=== PATIENT | male | born 1950 | race Hispanic/Latino ===

== ENCOUNTER 2018-11-14 18:38 | Observation (INO) | payer OTHER ==
[~2018-11-14] VITALS: Ht 165.1 cm; Wt 94.8 kg
[2018-11-14 19:40] LABS: BASOPHILS % 0.4 % (0.0-1.0); EOSINOPHILS # (AUTO) 0.3 (0.0-0.4); EOSINOPHILS % 2.9 % (0.0-6.0); HEMATOCRIT 41.1 % (38.2-49.6); HEMOGLOBIN 14.3 g/dL (14.0-18.0); LYMPHOCYTES # (AUTO) 1.4 (1.0-3.2); LYMPHOCYTES % 14.1 % (18.0-39.1); MEAN CORPUSCULAR HEMOGLOBIN 31.8 pg (28-32); MEAN CORPUSCULAR HGB CONC 34.8 g/dL (31-35); MEAN CORPUSCULAR VOLUME 91.3 fL (81-99); MONOCYTES # (AUTO) 0.8 (0.2-0.8); MONOCYTES % 7.6 % (4.4-11.3); NEUTROPHILS # (AUTO) 7.5 (2.1-6.9); NEUTROPHILS % 74.3 % (38.7-80.0); PLATELET COUNT 234 x10e3/uL (140-360); RED CELL DISTRIBUTION WIDTH 12.2 % (11.7-14.4)
[2018-11-14 19:45] LABS: INR 0.96; PROTHROMBIN TIME 13.3 seconds (11.9-14.5)
--- NOTE | 2018-11-14 19:45 | Diagnostic Imaging Report ---
EXAMINATION: CHEST SINGLE (PORTABLE) INDICATION: Blurred vision. Dizziness. Chest pain when he lay down. COMPARISON: None FINDINGS: AP view TUBES and LINES: None. LUNGS: Lungs are well inflated. Lungs are clear. There is mild prominence of the central pulmonary vasculature, consistent with pulmonary venous congestion. PLEURA: No pleural effusion or pneumothorax. HEART AND MEDIASTINUM: The cardiomediastinal silhouette is unremarkable. BONES AND SOFT TISSUES: No acute osseous lesion. Soft tissues are unremarkable. UPPER ABDOMEN: No free air under the diaphragm. IMPRESSION: Mild nonspecific central pulmonary venous congestion. Signed by: Dr. Fidel Vega M.D. on 11/14/2018 7:41 PM
[2018-11-14 19:46] LABS: PARTIAL THROMBOPLASTIN TIME 32.2 seconds (23.8-35.5)
[2018-11-14 19:54] LABS: ALANINE AMINOTRANSFERASE 20 IU/L (0-55); ALBUMIN 3.6 g/dL (3.5-5.0); ALBUMIN/GLOBULIN RATIO 1.1 (0.8-2.0); ALKALINE PHOSPHATASE 89 IU/L (40-150); ANION GAP 16.6 mmol/L (8-16); BLOOD UREA NITROGEN 20 mg/dL (7-26); BUN/CREATININE RATIO 20 (6-25); CALCIUM 9.2 mg/dL (8.4-10.2); CARBON DIOXIDE 25 mmol/L (22-29); CHLORIDE 102 mmol/L (98-107); CREATINE KINASE 200 IU/L (30-200); CREATININE, SERUM 1.01 mg/dL (0.72-1.25); EST GLOMERULAR FILTRATION RATE > 60 ML/MIN (60-); GLUCOSE 138 mg/dL (74-118); SODIUM 141 mmol/L (136-145)
[2018-11-14 19:58] LABS: POTASSIUM 2.6 mmol/L (3.5-5.1)
[2018-11-14] MEDS ORDERED: POTASSIUM CHLORIDE 20 MEQ TAB CR PO STA (20:10)
[2018-11-14 20:40] LABS: BILIRUBIN,URINE NEGATIVE (NEGATIVE); CLARITY,URINE CLEAR (CLEAR); COLOR,URINE YELLOW (YELLOW); KETONES,URINE NEGATIVE (NEGATIVE); LEUKOCYTE ESTERASE ,URINE NEGATIVE (NEGATIVE); NITRITE,URINE NEGATIVE (NEGATIVE); PROTEIN,URINE DIPSTICK NEGATIVE (NEGATIVE); URINE UROBILINOGEN 0.2 mg/dL (0.2 - 1)
[2018-11-14 20:40] LABS: MAGNESIUM 2.1 MG/DL (1.3-2.1)
[2018-11-14] MEDS: POTASSIUM CHLORIDE 10MEQ/100ML 100 ML IV SCH ×2 (21:02→23:13)
[2018-11-14 21:06] LABS: THYROID STIMULATING HORMONE 0.959 uIU/mL (0.350-4.940)
[2018-11-14 21:08] LABS: BACTERIA,URINE RARE /HPF; RBC,URINE 0-5 /HPF (0-5); WBC,URINE (MAN) 0-5 /HPF (0-5)
--- NOTE | 2018-11-14 22:08 | Diagnostic Imaging Report ---
History: Dizziness, double vison, syncope Comparison studies: None Technique: Axial images were obtained from the skull base to the vertex. Coronal and sagittal reconstructions obtained from the axial data. Dose modulation, iterative reconstruction, and/or weight based adjustment of the mA/kV was utilized to reduce the radiation dose to as low as reasonably achievable. Findings: Scalp/skull: No abnormalities. No fractures, blastic or lytic lesions. Extra-axial spaces: No masses. No fluid collections. Brain sulci: Appropriate for age. Ventricles: Normal in size and configuration. No hydrocephalus. Parenchyma: Few hypodensities in the supratentorial white matter are small vessel ischemic changes. No masses, hemorrhage, acute or chronic cortical vascular insults. Sellar/suprasellar region: Empty sella configuration. Craniocervical junction: Patent foramen magnum. No Chiari one malformation. IMPRESSION: No acute abnormalities . Signed by: DR Donovan Leal M.D. on 11/14/2018 10:04 PM
[2018-11-14] MEDS ORDERED: KCL 20MEQ/.9 SOD CHL 1,000 ML IV ONE (22:30)
[2018-11-14] MEDS ORDERED: ASPIRIN 81 MG CHEW TAB PO ONE (22:30)
[2018-11-14] MEDS ORDERED: ONDANSETRON HCL INJ 2MG/ML 2ML 2 MG/ML VIAL IV PRN (22:30)
--- OUTSIDE RECORDS SUMMARY | 2018-11-14 22:45 | XMS REPORT ---
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 Allergies, Adverse Reactions, Alerts This patient has no known allergies or adverse reactions. Medications This patient has no known medications. Results Test Description Test Time Test Comments Text Results Atomic Results Result Comments CT BRAIN WO 2018-11-14 22:00:00 [place] [address] Patient Name: SHERRI RICHEY MR #: [id number] : 1950 Age/Sex: 68/M Req #: [id number] Adm Physician: Ordered by: BREA SOLO MD Report #: [id number] Location: ER Room/Bed: Procedure: [id number] CT/CT BRAIN WO Exam Date: Exam Time: REPORT STATUS: Signed History: Dizziness, double vison, syncope Comparison studies: None Tech nique: Axial images were obtained from the skull base to the vertex. Coronal and sagittal reconstructions obtained from the axial data. Dose modulation, iterative reconstruction, and/or weight based adjustment of the mA/kV was utilized to reduce the radiation dose to as low as reasonably achievable. Findings: Scalp/skull: No abnormalities. No fractures, blastic or lytic lesions. Extra-axial spaces: No masses. No fluid collections. Brain sulci: Appropriate for age. Ventricles: Normal in size and configuration. No hydrocephalus. Parenchyma: Few hypodensities in the supratentorial white matter are small vessel ischemic changes. No masses, hemorrhage, acute or chronic cortical vascular insults. Sellar/suprasellar region: Empty sella configuration. Craniocervical junction: Patent foramen magnum. No Chiari one malformation. IMPRESSION: No acute abnormalities . Signed by: DR Donovan Leal M.D. on 11/14/2018 10:04 PM Dictated By: DONOVAN ESPARZA MD 03 Transcribed By: MALIA on 11/14/182203 COPY TO: BREA SOLO MD CHEST SINGLE (PORTABLE) 2018-11-14 19:40:00 [place] [address] Patient Name: SHERRI RICHEY MR #: [id number] : 1950 Age/Sex: 68/M Req #: [id number] Adm Physician: Ordered by: HARSH BRYAN CHIN STRAP CUTTER Report #: [id number] Location: ER Room/Bed: Procedure: [id number] DX/CHEST SINGLE (PORTABLE) Exam Date: 11/14/18 Exam Time: 1908 REPORT STATUS: Signed EXAMINATION: CHEST SINGLE (PORTABLE) INDICAT ION: Blurred vision. Dizziness. Chest pain when he lay down. COMPARISON: None FINDINGS: AP view TUBES and LINES: None. LUNGS: Lungs are well inflated. Lungs are clear. There is mild prominence of the central pulmonary vasculature, consistent with pulmonary venous congestion. PLEURA: No pleural effusion or pneumothorax. HEART AND MEDIASTINUM: The cardiomediastinal silhouette is unremarkable. BONES AND SOFT TISSUES: No acute osseous lesion. Soft tissues are unremarkable. UPPER ABDOMEN: No free air under the diaphragm. IMPRESSION: Mild nonspecific central pulmonary venous congestion. Signed by: Dr. Farrah Melendez M.D. on 11/14/2018 7:41 PM Dictated By: FARRAH MELENDEZ MD 40 Transcribed By: MALIA on 11/14/181940 COPY TO: HARSH BRYAN NP
--- NOTE | 2018-11-14 23:17 | NUR ---
TOTAL OF 20MEQ IV POTASSIUM GIVEN
[2018-11-14] MEDS ORDERED: AMLODIPINE BESY10 MG PO (23:25)
[2018-11-14] MEDS ORDERED: VITAMIN D250000 UNIT PO (23:25)
[2018-11-14] MEDS ORDERED: KLOR-CON M2020 MEQ PO (23:25)
[2018-11-14] MEDS ORDERED: LISINOPRIL-HCT1 EAC1 PO (23:25)
[2018-11-14] MEDS ORDERED: ATORVASTATIN CA20 MG PO (23:25)
[2018-11-14] MEDS ORDERED: FLOMAX0.4 MG PO (23:25)
[2018-11-14] MEDS ORDERED: HYDRALAZINE HCL 20 MG/ML VIAL IV STA (23:34)
[2018-11-14] MEDS ORDERED: HYDRALAZINE HCL 20 MG/ML VIAL ONE (23:39)
[2018-11-14] MEDS ORDERED: HYDRALAZINE HCL 20 MG/ML VIAL IV PRN (23:45)
[2018-11-15 06:03] LABS: BASOPHILS % 0.4 % (0.0-1.0); EOSINOPHILS # (AUTO) 0.3 (0.0-0.4); EOSINOPHILS % 3.1 % (0.0-6.0); HEMATOCRIT 38.8 % (38.2-49.6); HEMOGLOBIN 13.4 g/dL (14.0-18.0); LYMPHOCYTES # (AUTO) 1.8 (1.0-3.2); LYMPHOCYTES % 18.7 % (18.0-39.1); MEAN CORPUSCULAR HEMOGLOBIN 31.4 pg (28-32); MEAN CORPUSCULAR HGB CONC 34.5 g/dL (31-35); MEAN CORPUSCULAR VOLUME 90.9 fL (81-99); MONOCYTES # (AUTO) 0.8 (0.2-0.8); MONOCYTES % 8.7 % (4.4-11.3); NEUTROPHILS # (AUTO) 6.6 (2.1-6.9); NEUTROPHILS % 68.5 % (38.7-80.0); PLATELET COUNT 225 x10e3/uL (140-360); RED BLOOD COUNT 4.27 x10e6/uL (4.3-5.7); RED CELL DISTRIBUTION WIDTH 12.3 % (11.7-14.4)
[2018-11-15 06:24] LABS: CREATINE KINASE MB 1.6 ng/mL (0-5.0)
[2018-11-15 06:39] LABS: ALANINE AMINOTRANSFERASE 19 IU/L (0-55); ALBUMIN 3.2 g/dL (3.5-5.0); ALBUMIN/GLOBULIN RATIO 1.1 (0.8-2.0); ALKALINE PHOSPHATASE 76 IU/L (40-150); BLOOD UREA NITROGEN 14 mg/dL (7-26); BUN/CREATININE RATIO 18 (6-25); CALCIUM 8.5 mg/dL (8.4-10.2); CARBON DIOXIDE 24 mmol/L (22-29); CHLORIDE 106 mmol/L (98-107); CHOL/HDL RATIO 2.6 (3.9-4.7); CHOLESTEROL 88 MD/DL (0-199); CREATININE, SERUM 0.78 mg/dL (0.72-1.25); EST GLOMERULAR FILTRATION RATE > 60 ML/MIN (60-); GLUCOSE 103 mg/dL (74-118); HDL CHOLESTEROL 34 MG/DL (40-60); LDL CHOLESTEROL 36 MG/DL (60-130); SODIUM 137 mmol/L (136-145); TRIGLYCERIDES 89 MG/DL (0-149)
[2018-11-15 08:00] VITALS: BP 162/95
--- NOTE | 2018-11-15 08:00 | NUR ---
pt resting in bed, no c/o pain or s/s of distress. bedrest at this time. jeromy hodges labs. will continue to monitor.
[2018-11-15] MEDS ORDERED: POTASSIUM CHLORIDE 20 MEQ TAB CR PO ONE ×2 (08:30→12:15)
[2018-11-15] MEDS: ASPIRIN 81 MG ENTERIC COATED PO SCH (08:37)
[2018-11-15 10:02] VITALS: BP 162/95
--- NOTE | 2018-11-15 12:20 | Diagnostic Imaging Report ---
TECHNIQUE: CT of the chest, abdomen and pelvis without intravenous contrast. History: Pain, dizziness, hypokalemia, near syncope. COMPARISON: Chest radiograph 11/14/2018. TECHNIQUE: Chest, abdomen and pelvis were scanned utilizing a multidetector helical scanner from the thoracic inlet to the pubic symphysis without administration of IV or oral contrast. Coronal and sagittal reformations were obtained. Routine protocol was performed. Lack of intravenous contrast limits evaluation for vascular and visceral structures. RADIATION DOSE: Total DLP: 984.6 mGy*cm Dose modulation, iterative reconstruction, and/or weight based adjustment of the mA/kV was utilized to reduce the radiation dose to as low as reasonably achievable. FINDINGS: LINES AND TUBES: None LUNGS AND AIRWAYS: The central airways are patent. Multiple calcified granulomas, for example in the right lower lobe on series 4, image 60. No evidence of pneumonia or pulmonary edema. PLEURA: The pleural spaces are clear. HEART AND MEDIASTINUM: Limited evaluation of the thyroid gland without definite abnormality. No significant mediastinal, hilar or axillary lymphadenopathy is seen. No cardiomegaly or pericardial effusion. Coronary atherosclerosis (most pronounced in the LAD and left circumflex). HEPATOBILIARY: No focal hepatic lesions. No biliary ductal dilatation. SPLEEN: No splenomegaly. PANCREAS: No focal masses or ductal dilatation. ADRENALS: No adrenal nodules. KIDNEYS/URETERS: No hydronephrosis or solid mass lesions. There is a 6 mm nonobstructing right midpole renal stone. PELVIC ORGANS/BLADDER: The prostate is enlarged, measuring up to 5.4 x 4.4 x 4.4 cm (TV x AP x SI). PERITONEUM / RETROPERITONEUM: No free air or fluid. LYMPH NODES: No lymphadenopathy. VESSELS: Atherosclerotic calcifications within the left common and external iliac arteries. GI TRACT: No distention or wall thickening. Small hiatal hernia. Sigmoid colonic diverticulosis without CT evidence of diverticulitis. BONES AND SOFT TISSUES: No acute osseous abnormality. Nonspecific tiny scattered sclerotic foci in the pelvis. There is a T11 vertebral body hemangioma. Fat-containing umbilical and bilateral inguinal hernias. IMPRESSION: No acute non-contrast CT abnormality within the chest, abdomen, or pelvis. Coronary atherosclerosis. A 6 mm right mid pole non-obstructing renal stone. Prostatomegaly. Sequela of prior granulomatous disease Signed by: Dr. Shanel Vee MD on 11/15/2018 12:17 PM
[2018-11-15 12:35] VITALS: BP 132/95
[2018-11-15 14:54] LABS: CREATINE KINASE MB 1.9 ng/mL (0-5.0)
[2018-11-15] MEDS ORDERED: IOPAMIDOL 370 MG/ML 200 ML INFUS..BTL INJ ONE (15:54)
[2018-11-15] MEDS ORDERED: SODIUM CHLORIDE 0.9% 50ML 50 ML ONE (15:54)
[2018-11-15 16:13] VITALS: BP 153/87
--- NOTE | 2018-11-15 17:13 | History and Physical ---
CHIEF COMPLAINT: Low potassium, near syncope, and visual changes. HISTORY OF PRESENT ILLNESS: The patient is a 68-year-old male with chest pain approximately two weeks ago, came to see primary care physician, . came in with headaches and complained of increasing blood pressure associated with chest pain and also low potassium. The patient's potassium level on admission was 2.6. The patient has medication at home. He was taking potassium and also Norvasc for blood pressure as well. He was on lisinopril and HCTZ. The patient is otherwise stable now, except for some visual changes. MRI of the brain is still pending. The patient is otherwise stable at this time. PAST MEDICAL HISTORY: Hypertension, dyslipidemia, enlarged prostate, morbid obesity, and umbilical hernia. PAST SURGICAL HISTORY: Left hand CTS surgery and bilateral jaw surgery. SOCIAL HISTORY: The patient was an ex-smoker and drinker. No current alcohol or tobacco usage. HOME MEDICATIONS: 1. Norvasc. 2. Lipitor. 3. Lisinopril. 4. HCTZ. 5. Potassium. 6. Flomax. ALLERGIES: NO KNOWN DRUG ALLERGIES. PHYSICAL EXAMINATION: VITAL SIGNS: Temperature is 98, blood pressure 125/84, pulse rate 52, and respirations 18. GENERAL: The patient is not in acute distress, awake. HEENT: Normocephalic, anicteric. NECK: Supple grossly. PULMONARY: Diminished breath sounds. CARDIOVASCULAR: Regular rate and rhythm, bradycardia. ABDOMEN: Morbidly obese, umbilical hernia reducible. EXTREMITIES: Trace edema with chronic venous skin changes. NEUROLOGIC: No focal deficit. LABORATORY DATA: Sodium is 137, potassium 3, chloride 106, bicarb 24, BUN 14, creatinine 0.7, and glucose 103. WBC is 9.7, hemoglobin 13.4, hematocrit 38.9, and platelets is 225. IMAGING: Brain CT is otherwise unremarkable. No acute abnormality. Chest x-ray, nonspecific central pulmonary vascular congestion. IMPRESSION: 1. Visual changes, diplopia. 2. Severe low potassium, most probably from medication. 3. Morbidly obese. 4. Chest pain. 5. Electrolyte disorder. PLAN: Correct electrolyte. Consultation with Dr. Eavn Hannon. Echocardiogram, carotid Doppler, and MRI of the brain. DVT prophylaxis . We will replace potassium. We will follow up on recommendation. Follow up with MRI of the brain. MD LALITHA Valles/KELLY /[id number]
[2018-11-15] MEDS: ENOXAPARIN SOD INJ 40 MG/0.4 ML SYR SC SCH (17:44)
[2018-11-15 20:00] VITALS: BP 161/98
--- NOTE | 2018-11-15 20:00 | NUR ---
PT IN BED, TELE ON PT, NO DISTRESS NOTED, NO PAIN, BM TODAY, NO EDEMA, CALL LIGHT IN REACH,
[2018-11-15 20:07] VITALS: BP 153/87
[2018-11-16] VITALS: BP 126/75
[2018-11-16 04:00] VITALS: BP 142/81
[2018-11-16 05:37] LABS: BASOPHILS % 0.2 % (0.0-1.0); EOSINOPHILS # (AUTO) 0.4 (0.0-0.4); EOSINOPHILS % 3.4 % (0.0-6.0); HEMATOCRIT 39.3 % (38.2-49.6); HEMOGLOBIN 13.6 g/dL (14.0-18.0); LYMPHOCYTES # (AUTO) 1.7 (1.0-3.2); LYMPHOCYTES % 16.8 % (18.0-39.1); MEAN CORPUSCULAR HEMOGLOBIN 31.6 pg (28-32); MEAN CORPUSCULAR HGB CONC 34.6 g/dL (31-35); MEAN CORPUSCULAR VOLUME 91.2 fL (81-99); MONOCYTES % 9.6 % (4.4-11.3); NEUTROPHILS # (AUTO) 7.1 (2.1-6.9); NEUTROPHILS % 69.4 % (38.7-80.0); PLATELET COUNT 232 x10e3/uL (140-360); RED BLOOD COUNT 4.31 x10e6/uL (4.3-5.7); RED CELL DISTRIBUTION WIDTH 12.3 % (11.7-14.4)
[2018-11-16 05:57] LABS: ALANINE AMINOTRANSFERASE 21 IU/L (0-55); ALBUMIN 3.2 g/dL (3.5-5.0); ALKALINE PHOSPHATASE 73 IU/L (40-150); ANION GAP 11.9 mmol/L (8-16); BLOOD UREA NITROGEN 12 mg/dL (7-26); BUN/CREATININE RATIO 14 (6-25); CALCIUM 8.8 mg/dL (8.4-10.2); CARBON DIOXIDE 23 mmol/L (22-29); CHLORIDE 106 mmol/L (98-107); CHOL/HDL RATIO 2.6 (3.9-4.7); CHOLESTEROL 91 MD/DL (0-199); CREATININE, SERUM 0.85 mg/dL (0.72-1.25); EST GLOMERULAR FILTRATION RATE > 60 ML/MIN (60-); GLUCOSE 97 mg/dL (74-118); HDL CHOLESTEROL 35 MG/DL (40-60); LDL CHOLESTEROL 33 MG/DL (60-130); PHOSPHORUS 2.7 MG/DL (2.3-4.7); SODIUM 138 mmol/L (136-145); TRIGLYCERIDES 115 MG/DL (0-149)
[2018-11-16 05:59] LABS: POTASSIUM 2.9 mmol/L (3.5-5.1)
[2018-11-16 06:19] LABS: THYROID STIMULATING HORMONE 2.251 uIU/mL (0.350-4.940)
--- NOTE | 2018-11-16 06:50 | NUR ---
rounded with fast food shift lead nurse, patient resting comfortably and in no distress. call andrews within reach and bed in lowest position
[2018-11-16 07:55] VITALS: BP 142/86
[2018-11-16 08:00] VITALS: BP 142/86
[2018-11-16] MEDS ORDERED: POTASSIUM CHLORIDE 20 MEQ TAB CR PO STA (08:07)
[2018-11-16] MEDS: ASPIRIN 81 MG ENTERIC COATED PO SCH (08:35)
[2018-11-16] MEDS ORDERED: POTASSIUM CHLORIDE 20 MEQ TAB CR PO SCH ×2 (09:00→16:00)
[2018-11-16] MEDS ORDERED: ONDANSETRON HCL 4 MG ORAL DISINTEGRATING TAB PO PRN (09:15)
[2018-11-16] MEDS: LISINOPRIL 20 MG TAB PO SCH ×2 (09:26→16:15)
[2018-11-16 09:29] LABS: MAGNESIUM 1.9 MG/DL (1.3-2.1); PHOSPHORUS 2.7 MG/DL (2.3-4.7)
--- NOTE | 2018-11-16 10:23 | Diagnostic Imaging Report ---
Images made available for interpretation on 11/16/2018 at 10:15 AM. EXAMINATION: MRI of the brain without contrast. HISTORY: TIA, double vision, dizziness, imbalance COMPARISON: Head CT 11/14/2018 TECHNIQUE: Sagittal T2; axial DWI, T2, FLAIR, T1-IR, T2 gradient echo; coronal FLAIR. IMAGE QUALITY: Motion artifact limits the evaluation of some of the sequences. FINDINGS: Parenchyma: 1. A few scattered white matter T2 and FLAIR hyperintense foci, most likely age-related minimal chronic microvascular ischemic changes. 2. No mass, hemorrhage, acute or chronic infarcts. Skull: Unremarkable. Vessels: Expected flow voids present in the major arteries and dural sinuses. Extra-axial spaces: No abnormal signal intensity or mass effect. Brain volume: Within normal limits for age. Ventricles: No hydrocephalus or displacement. Foramen magnum: Unremarkable. Sella: Enlarged, partially empty, mostly CSF filled. Paranasal / mastoid sinuses: No significant inflammatory disease. IMPRESSION: No acute infarcts. Minimal age-related chronic microvascular ischemic changes. Signed by: Dr. Christiana Lea M.D. on 11/16/2018 10:20 AM
[2018-11-16 11:18] VITALS: BP 125/78
--- NOTE | 2018-11-16 13:48 | Consultation ---
DATE OF CONSULTATION: 11/15/2018 REASON FOR CONSULTATION: Chest pain. CONSULTING PHYSICIAN: Dr. Edgard France. HISTORY OF PRESENT ILLNESS: This is a pleasant 68-year-old male, who presented with chest pain. According to the patient, for the last two weeks he has been having chest pain off and on, on a scale of 3/10 with no radiation. He stated the pain comes and go. He also complained yesterday he was eating when he suddenly felt dizzy, almost passed out, that he decided to come into the emergency room for further evaluation. He has a history of high blood pressure and has been on lisinopril and hydrochlorothiazide that have been causing him to have low potassium. He had a CT brain done, which was negative and CT abdomen showed 6 mm right mid pole nonobstructing renal stone and a large prostate. He denied any palpitation, any diaphoresis, any nausea or vomiting. Troponin x3 was negative. EKG showed normal sinus rhythm with some bigeminy. BNP 27.7. Chest x-ray, nonspecific central pulmonary venous congestion. PAST MEDICAL HISTORY: Hypertension, hyperlipidemia, hypokalemia, BPH, umbilical hernia. PAST SURGICAL HISTORY: Left carpal tunnel surgery, bilateral jaw bone surgery, and hernia repair. FAMILY HISTORY: Noncontributory. SOCIAL HISTORY: He lives at home with the and he quit smoking a long time ago. MEDICATIONS: He was on Norvasc, Lipitor, lisinopril, hydrochlorothiazide, Flomax, and potassium. ALLERGIES: HE IS NOT ALLERGIC TO ANY MEDICATION. REVIEW OF SYSTEMS: Negative except those mentioned above. PHYSICAL EXAMINATION: VITAL SIGNS: Temperature 97.9, heart rate 62, blood pressure 142/81, respirations 16, oxygen saturation 99% on 2 L nasal cannula. GENERAL: He is awake, alert, and oriented x3. HEENT: Mucous membranes are moist. NECK: Supple. LUNGS: Bilateral clear to auscultation. CARDIOVASCULAR: S1, S2 present, but irregular. ABDOMEN: Distended, but soft. NEUROLOGICAL: Intact. EXTREMITIES: With no edema. LABS: Sodium 138, potassium 2.9, chloride 106, CO2 of 23, BUN 12, creatinine 0.86, glucose 97. White blood cell 10.2, hemoglobin 10.6, hematocrit 39.3, platelets 232. PT 13.3, PTT 32.2, INR 0.96. IMPRESSION: 1. Severe hypokalemia. 2. Chest pain, atypical. 3. Syncope. 4. Hypertension. 5. Hyperlipidemia. 6. History of benign prostatic hypertrophy. PLAN: 1. We will go ahead and replace the potassium. 2. We will get an echocardiogram to assess the LV and the valve function. 3. We will get bilateral carotid Doppler to rule out any occlusion. 4. We will continue his blood pressure medication. 5. Chest pain could be due to the elevated blood pressure. Troponin x3 was negative. 6. We will continue all his home medications. Further cardiac workup pending clinical course. Thank you for this consultation. Dictated by Shon Watters NP MD ART Dietz/MODL /[id number]
--- NOTE | 2018-11-16 14:55 | NUR ---
Visit made by the Spiritual Care Department Pastoral Visitor, Maria De Jesus Sutherland. PV provided pastoral presence, prayer, hospitality, and supportive listening. Pastoral Visitor informed pt/family of the scope of Metal Shaping Machine Operator Services and availability. JUAN MAHER Poultry Service Technician Spiritual Care Department O: [phone] Pager: [phone] ([phone] number calling from)
[2018-11-16 16:00] VITALS: BP 158/90
[2018-11-16] MEDS: ENOXAPARIN SOD INJ 40 MG/0.4 ML SYR SC SCH (16:15)
[2018-11-16 17:20] LABS: ANION GAP 11.4 mmol/L (8-16); BLOOD UREA NITROGEN 15 mg/dL (7-26); BUN/CREATININE RATIO 18 (6-25); CALCIUM 8.8 mg/dL (8.4-10.2); CARBON DIOXIDE 22 mmol/L (22-29); CHLORIDE 106 mmol/L (98-107); CREATININE, SERUM 0.84 mg/dL (0.72-1.25); EST GLOMERULAR FILTRATION RATE > 60 ML/MIN (60-); GLUCOSE 86 mg/dL (74-118); POTASSIUM 3.4 mmol/L (3.5-5.1); SODIUM 136 mmol/L (136-145)
[2018-11-16] MEDS ORDERED: POTASSIUM CHLORIDE 10MEQ EA PO NR ×2 (17:45→18:00)
[2018-11-16] MEDS ORDERED: LISINOPRIL20 MG PO (17:51)
--- NOTE | 2018-11-16 18:50 | NUR ---
rounded with shift supervisor melting nurse, patient aware of change. Call andrews within reach and bed in lowest position.
--- NOTE | 2018-11-17 00:06 | Discharge Summary ---
FINAL DIAGNOSES: 1. Severe hypokalemia 2.6 secondary to HCTZ blood pressure medication and the patient is not taking potassium replacement. 2. Hypertensive urgency. 3. Visual changes, resolved. 4. Generalized weakness with negative MRI of the brain without contrast. SUMMARY: The patient is a 68-year-old male, who came to the hospital with multiple complaints, generalized weakness, some dizziness, blurry vision. Workup otherwise negative. The patient was seen by Dr. Hannon, has been cleared for discharge except for replacement of potassium. His potassium now is replaced. Last potassium level was 3.4. The patient will receive another K-Dur 40 mEq x1 before he will go home. His medications for discharge home have been adjusted. The patient will stop lisinopril-HCTZ and start on lisinopril 20 mg twice a day. The patient will continue his Norvasc, atorvastatin, vitamin D, and Flomax. He will not need potassium replacement, for which he was not taking anyway. The patient is stable. Discharged home today. Of note, his carotid Doppler is without any stenosis. Abdominal and pelvic CT, chest CT, brain MRI, brain CT, and chest x-ray, otherwise unremarkable. The patient is otherwise stable. Discharged home. Follow up with his family doctor. The patient will need an eye exam by his community fundraiser and referral by his family physician is needed. The patient is stable, discharged home. MD LALITHA Valles/KELLY /[id number]
== END 2018-11-16 20:36 | disposition home or self-care (01) ==
LOC: ER 18:38 → ERHOLD 22:42 → IMCU 11-15 06:30
PROVIDERS: ADMIT Internal Medicine; ATTEND Internal Medicine
DX: E87.6 Hypokalemia (principal); R07.89 Other chest pain; R55 Syncope and collapse; I10 Essential (primary) hypertension; H53.2 Diplopia; Z68.34 Body mass index [BMI] 34.0-34.9, adult; E66.01 Morbid (severe) obesity due to excess calories; N40.1 Benign prostatic hyperplasia with lower urinary tract symptoms; K42.9 Umbilical hernia without obstruction or gangrene; T46.4X5A Adverse effect of angiotensin-converting-enzyme inhibitors, initial encounter; E78.5 Hyperlipidemia, unspecified; N20.0 Calculus of kidney; I16.0 Hypertensive urgency; R53.1 Weakness; Z87.891 Personal history of nicotine dependence; Z82.49 Family history of ischemic heart disease and other diseases of the circulatory system
CPT/HCPCS: 36415 ×3; 70450; 70551; 71045; 71250; 74176; 80048; 80053 ×3; 80061 ×2; 81001; 82550 ×2; 82553 ×2; 83735 ×2; 83880; 84100; 84443 ×2; 84484 ×2; 85025 ×3; 85610; 85730; 93005; 93306; 93880; 99284; G0378 ×3; J0360 ×2; J1650 ×2; J3480; Q9967